=== PATIENT | female | born 1995 | race African-American/Black ===

== ENCOUNTER 2017-06-24 13:21 | Emergency (ER) | payer MEDICAID, SELFPAY ==
[~2017-06-24] VITALS: Ht 160 cm; Wt 132.4 kg
[~2017-06-24 13:21] MED LIST: BENADRYL25 MG ORAL; NAPROSYN500 M1 ORAL; NKM; NORCO 5-325 TA1 EACH PO; PENICILLIN V P500 MG PO; PREDNISONE20 MG ORAL; RANITIDINE HCL150 MG ORAL; ULTRAM50 MG PO
[2017-06-24 14:23] VITALS: BP 116/62
[2017-06-24 14:29] LABS: BASOPHILS % (AUTO) 0.7 % (0.0-2.0); LYMPHOCYTES % (AUTO) 17.4 % (20.0-45.0); MEAN CORPUSCULAR HEMOGLOBIN 26.4 PG (27.0-31.0); MEAN CORPUSCULAR HGB CONC 31.8 G/DL (32.0-36.0); MEAN CORPUSCULAR VOLUME 83 FL (80-99); MONOCYTES % (AUTO) 7.3 % (1.0-10.0); NEUTROPHILS % (AUTO) 73.7 % (45.0-75.0); PLATELET COUNT 386 K/UL (150-450); RED BLOOD COUNT 4.04 M/UL (4.20-5.40); WHITE BLOOD COUNT 10.4 K/UL (4.8-10.8)
[2017-06-24 14:32] LABS: APPEARANCE,URINE SLIGHTLY CLOUDY; KETONES,URINE NEGATIVE (NEGATIVE); LEUKOCYTE ESTERASE ,URINE 3+ (NEGATIVE); NITRITE,URINE NEGATIVE (NEGATIVE); PH,URINE 6 (4.5-8.0); PROTEIN,URINE 1+ (NEGATIVE); UROBILINOGEN,URINE 1 MG/DL (0.0-1.0)
[2017-06-24 14:35] LABS: INR 0.9 (0.9-1.1); PROTHROMBIN TIME 9.8 SEC (9.30-11.50)
[2017-06-24 14:36] LABS: ALANINE AMINOTRANSFERASE 13 U/L (12-78); ALBUMIN/GLOBULIN RATIO 0.4 (1.0-2.7); ANION GAP 8 (5-15); ASPARTATE AMINO TRANSFERASE 12 U/L (15-37); CALCIUM 8.3 MG/DL (8.5-10.1); CARBON DIOXIDE 24 MMOL/L (21-32); CHLORIDE 105 MMOL/L (98-107); CREATININE 0.5 MG/DL (0.55-1.00); GLOMERULAR FILTRATION RATE > 60 mL/min (>60); LIPASE 68 U/L (73-393); POTASSIUM 3.2 MMOL/L (3.5-5.1); SODIUM 137 MMOL/L (136-145); TOTAL PROTEIN 6.6 G/DL (6.4-8.2)
[2017-06-24 14:52] LABS: BACTERIA,URINE FEW /HPF; SQUAMOUS EPITHELIAL CELL,UR MANY /LPF (NONE/OCC); WBC,URINE TNTC /HPF (0 - 2)
[2017-06-24] MEDS ORDERED: PRENATAL VITAM1 EAC3 PO (17:18)
[2017-06-24] MEDS ORDERED: NITROFURANTOIN100 M2 ORAL (17:18)
[2017-06-24] MEDS ORDERED: TYLENOL EXTRA500 MG ORAL (17:18)
[2017-06-24 17:19] VITALS: BP 112/62
[2017-06-24 17:27] VITALS: BP 112/62
[2017-06-24] MEDS ORDERED: Acetaminophen 500mg (ES) tab ORAL ONE (17:30)
--- NOTE | 2017-06-24 22:20 | Emergency Room Report ---
History of Present Illness General Chief Complaint: General Complaint Source: Patient (BOBO SETH) Present Illness HPI The patient is a 22-year-old female presenting for lower extremity pain. She states that she believes that she is at approximately 20 weeks gestation but has not seen an OB. She noticed swelling and pain to both legs approximately 1 week prior which has been worsening. Pain is now 8/10 dull ache it is worse with leg movement. She denies any radiating pain. She denies any shortness of breath or chest pain. She denies being on OCP, recent leg injury, or recent long period of inactivity. She denies any other symptoms including N, V, F, chills, abd pain, vaginal bleeding, dysuria, vaginal DC, back pain, rash, JIANG, blurred vision, dizziness (BOBO SETH) Allergies: Coded Allergies: No Known Allergies (Unverified , 02/16/13) Patient History Past Medical History: see triage record Pertinent Family History: none Reviewed Nursing Documentation: PMH: Agreed, PSxH: Agreed (BOBO SETH) Nursing Documentation-PMH Past Medical History: No Stated History (BOBO SETH) Review of Systems All Other Systems: negative except mentioned in HPI (BOBO SETH) Physical Exam Vital Signs Date Time Temp Pulse Resp B/P (MAP) Pulse Ox O2 Delivery O2 Flow Rate FiO2 06/24/17 13:25 98.2 118 20 116/62 99 Room Air Sp02 EP Interpretation: reviewed, normal General Appearance: no apparent distress, alert, GCS 15, non-toxic Head: normocephalic, atraumatic Eyes: bilateral eye normal inspection, bilateral eye PERRL ENT: hearing grossly normal, normal pharynx, no angioedema, normal voice Neck: full range of motion, supple/symm/no masses Respiratory: chest non-tender, lungs clear, normal breath sounds, speaking full sentences Cardiovascular #1: regular rate, rhythm, no edema Gastrointestinal: normal bowel sounds, non tender, soft, non-distended, no guarding, no rebound Genitourinary: normal inspection, no CVA tenderness Musculoskeletal: back normal, gait/station normal, normal range of motion, calf tenderness - bilat, swelling - bilat lower legs, non pitting Neurologic: alert, oriented x3, responsive, motor strength/tone normal, sensory intact, speech normal Psychiatric: judgement/insight normal, memory normal, mood/affect normal, no suicidal/homicidal ideation Skin: normal color, no rash, warm/dry, well hydrated (BOBO SETH) Medical Decision Making PA Attestation Dr. Levi my supervising physician. Patient management was discussed with my supervising physician (BOBO SETH) Diagnostic Impression: Primary Impression: Urinary tract infection during Qualified Codes: O23.42 - Unspecified infection of urinary tract in , second trimester Additional Impression: Qualified Codes: Z3A.21 - 21 weeks gestation of ER Course The patient is a 22-year-old female at approximately 20 weeks gestation presenting for bilat leg pain and swelling DDx considered but not limited to: DVT, pre eclampsia, venous insufficiency, among others PE: normotensive. NAD HEENT unremarkable Abd is soft and non tender. There is bilat lower leg edema. Non pitting. Diffuse. No discoloration. + calf tenderness bilat DP pulse 2+ bilat OB US: viable IUP at 21 weeks gestation. heart rate 140s Bilat DVT study: NEG CBC and CMP unremarkable. No leukocytosis. Urinalysis is consistent with urinary tract infection Beta hCG at appropriate level for gestational age The patient needs to followup with OB as she has not had a visit during this . She is given prescription for vitamins and antibiotics due urinary tract infection. ER precautions given Laboratory Tests Test 06/24/17 14:11 06/24/17 14:15 White Blood Count 10.4 K/UL (4.8-10.8) Red Blood Count 4.04 M/UL (4.20-5.40) L Hemoglobin 10.7 G/DL (12.0-16.0) L Hematocrit 33.5 % (37.0-47.0) L Mean Corpuscular Volume 83 FL (80-99) Mean Corpuscular Hemoglobin 26.4 PG (27.0-31.0) L Mean Corpuscular Hemoglobin Concent 31.8 G/DL (32.0-36.0) L Red Cell Distribution Width 14.0 % (11.6-14.8) Platelet Count 386 K/UL (150-450) Mean Platelet Volume 5.0 FL (6.5-10.1) L Neutrophils (%) (Auto) 73.7 % (45.0-75.0) Lymphocytes (%) (Auto) 17.4 % (20.0-45.0) L Monocytes (%) (Auto) 7.3 % (1.0-10.0) Eosinophils (%) (Auto) 1.0 % (0.0-3.0) Basophils (%) (Auto) 0.7 % (0.0-2.0) Prothrombin Time 9.8 SEC (9.30-11.50) Prothrombin Time INR 0.9 (0.9-1.1) PTT 30 SEC (23-33) Sodium Level 137 MMOL/L (136-145) Potassium Level 3.2 MMOL/L (3.5-5.1) L Chloride Level 105 MMOL/L (98-107) Carbon Dioxide Level 24 MMOL/L (21-32) Anion Gap 8 (5-15) Blood Urea Nitrogen 5 mg/dL (7-18) L Creatinine 0.5 MG/DL (0.55-1.00) L Estimate Glomerular Filtration Rate > 60 mL/min (>60) Glucose Level 85 MG/DL (74-106) Calcium Level 8.3 MG/DL (8.5-10.1) L Total Bilirubin 0.5 MG/DL (0.2-1.0) Aspartate Amino Transferase (AST) 12 U/L (15-37) L Alanine Aminotransferase (ALT) 13 U/L (12-78) Alkaline Phosphatase 113 U/L (46-116) Total Protein 6.6 G/DL (6.4-8.2) Albumin 2.1 G/DL (3.4-5.0) L Globulin 4.5 g/dL Albumin/Globulin Ratio 0.4 (1.0-2.7) L Lipase 68 U/L (73-393) L Human Chorionic Gonadotropin, Quant 64153 mIU/mL (1-6) H Urine Color Brown Urine Appearance Slightly cloudy Urine pH 6 (4.5-8.0) Urine Specific [place] 1.025 (1.005-1.035) Urine Protein 1+ (NEGATIVE) H Urine Glucose (UA) Negative (NEGATIVE) Urine Ketones Negative (NEGATIVE) Urine Occult Blood 1+ (NEGATIVE) H Urine Nitrite Negative (NEGATIVE) Urine Bilirubin Negative (NEGATIVE) Urine Urobilinogen 1 MG/DL (0.0-1.0) H Urine Leukocyte Esterase 3+ (NEGATIVE) H Urine RBC 2-4 /HPF (0 - 2) H Urine WBC Tntc /HPF (0 - 2) H Urine Squamous Epithelial Cells Many /LPF (NONE/OCC) H Urine Bacteria Few /HPF (NONE) Lab Results Impression CBC and CMP unremarkable. No leukocytosis. Urinalysis is consistent with urinary tract infection Beta hCG at appropriate level for gestational age (BOBO SETH P.A.) ER Course This patient was discussed in detail. I agree with assessment and treatment plan. (Greg Figueroa M.D.) CT/MRI/US Diagnostic Results CT/MRI/US Diagnostic Results #1: Imaging Test Ordered: OB US Impression viable IUP at 21 weeks gestation. heart rate 140s CT/MRI/US Diagnostic Results #2: Imaging Test Ordered: Venous duplex bilat Impression negative DVT study (BOBO SETH P.A.) Last Vital Signs Date Time Temp Pulse Resp B/P (MAP) Pulse Ox O2 Delivery O2 Flow Rate FiO2 06/24/17 17:34 98.2 06/24/17 17:27 71 18 112/62 99 Room Air Status: improved (EUGENIE SETHY P.A.) Disposition: HOME, SELF-CARE Condition: Improved Scripts Vit/Iron Fumarate/Fa ( VITAMINS TABLET) 1 Each Tablet 1 EACH PO DAILY, #30 TAB Prov: TERZIAN,BOBO P.A. 06/24/17 Acetaminophen* (TYLENOL EXTRA STRENGTH*) 500 Mg Tablet 500 MG ORAL Q8H Y for Prn Headache/Temp > 101, #30 TAB 0 Refills Prov: TERZIAN,BOBO P.A. 06/24/17 Nitrofurantoin Monohyd/M-Cryst* (MACROBID 100 MG*) 100 Mg Capsule 100 MG ORAL EVERY 12 HOURS, #14 CAP Prov: TERZIAN,BOBO P.A. 06/24/17 Patient Instructions: Urinary Tract Infection, Second Trimester of Additional Instructions: I discussed my findings with the patient. All questions and concerns have been answered. Treatment and medication compliance have been addressed. I advised the patient that they need to follow up with PMD in 3-5 days. Return to ED if symptoms worsen, new symptoms arise, or if needed for any reason. Patient verbalized understanding of discharge instructions. The patient will need to follow up with OB as soon as possible. She agrees. Please return to emergency Department if you notice any other symptoms including nausea, vomiting, fever, chills, vaginal bleeding, abdominal pain BOBO SETH Jun 24, 2017 22:20 Greg Figueroa M.D. Jun 25, 2017 05:37
--- NOTE | 2017-06-25 11:01 | Diagnostic Imaging Report ---
APPROVED REPORT CPT Code: 00242 Present Symptoms Comments: R/O DVT BILATERAL: Imaging reveals a patent deep venous system bilaterally. There is no evidence of thrombus within the femoral, popliteal or tibial segments. The greater saphenous veins are also within normal limits. Doppler indicates normal spontaneous flow within these segments.
== END 2017-06-24 17:40 | disposition home or self-care (01) ==
LOC: EMR 14:36
DX: O23.42 Unspecified infection of urinary tract in pregnancy, second trimester (principal); Z3A.21 21 weeks gestation of pregnancy
CPT/HCPCS: 36415; 76805; 80053; 81003; 83690; 84702; 85025; 85610; 85730; 86850; 86900; 86901; 87086; 93970; 99284

== ENCOUNTER 2020-06-01 22:09 | Emergency (ER) | payer MEDICAID ==
[~2020-06-01] VITALS: Ht 160 cm; Wt 128.4 kg
[~2020-06-01 22:09] MED LIST changes: +NITROFURANTOIN100 M2 ORAL; +PRENATAL VITAM1 EAC3 PO; +TYLENOL EXTRA500 MG ORAL
[2020-06-01 22:20] VITALS: BP 101/44
[2020-06-01] MEDS ORDERED: HYDROmorphone 1mg/ml Carpuject IVP ONE (22:30)
[2020-06-01] MEDS ORDERED: Acetaminophen 500mg (ES) tab ORAL ONE (22:30)
--- NOTE | 2020-06-01 22:34 | Emergency Room Report ---
History of Present Illness General Chief Complaint: Abdominal Pain Source: Patient Present Illness [facility] This a 25-year-old female with no past medical history. She presents with chief plaint abdominal pain and fever. Onset 1 PM this afternoon. She is at temperature at home was 102. Her pain is mostly the lower quadrant and right lower quadrant area. Decreased appetite. Nauseous but no vomiting. No diarrhea. No urinary complaint. Did not take any medication for it. Pain is 8 out of 10. No radiation of the pain. Patient said that she may be even though she just got off her menstruation 2 days ago. Allergies: Coded Allergies: No Known Allergies (Unverified , 02/16/13) COVID-19 Screening Contact w/high risk pt: No Experienced COVID-19 symptoms?: Yes COVID-19 Testing performed [employer]RARIAN: No Patient History Past Medical History: see triage record, old chart reviewed Past Surgical History: none Pertinent Family History: none Last Menstrual Period: 04/18/20 Now: Yes - POSSIBILITY : 6 Para: 4 Nursing Documentation-[facility] Past Medical History: No Stated History Review of Systems Constitutional: Reports: fever Eye: Denies: eye pain, blurred vision ENT: Denies: ear pain, nose congestion, throat swelling Respiratory: Denies: cough, shortness of breath Cardiovascular: Denies: chest pain, palpitations Gastrointestinal: Reports: abdominal pain, nausea; Denies: diarrhea, vomiting Musculoskeletal: Denies: back pain, joint pain Skin: Denies: rash Neurological: Denies: headache, numbness Endocrine: Denies: increased thirst, increased urine Hematologic/Lymphatic: Denies: easy bruising All Other Systems: negative except mentioned in HPI Physical Exam Vital Signs Date Time Temp Pulse Resp B/P (MAP) Pulse Ox O2 Delivery O2 Flow Rate FiO2 06/01/20 22:12 100.8 110 18 108/63 (78) 96 Room Air Vitals with fever Sp02 EP Interpretation: reviewed, normal General Appearance: well appearing, no apparent distress, alert, obese Head: normocephalic, atraumatic Eyes: bilateral eye PERRL, bilateral eye EOMI ENT: hearing grossly normal, normal pharynx Neck: full range of motion, supple, no meningismus Respiratory: chest non-tender, lungs clear, normal breath sounds Cardiovascular #1: regular rate, rhythm, no murmur Gastrointestinal: normal bowel sounds, no mass, no organomegaly, no bruit, non- distended, tenderness - Right lower quadrant Musculoskeletal: back normal, normal range of motion, gait/station normal Psychiatric: mood/affect normal Medical Decision Making Diagnostic Impression: Primary Impression: Abdominal pain Qualified Codes: R10.30 - Lower abdominal pain, unspecified Additional Impressions: COVID-19 virus infection Morbid obesity with BMI of 50.0-59.9, adult ER Course Patient presents with abdominal pain and fever. She is COVID positive. This is probably the cause of abdominal pain. Abdominal CT unremarkable. She is in no respiratory distress. Oxygenation is normal. Will discharge home with symptomatic treatment. CT/MRI/US Diagnostic Results CT/MRI/US Diagnostic Results : Imaging Test Ordered: CT abdomen and pelvis Impression Read by radiologist. Negative. Last Vital Signs Date Time Temp Pulse Resp B/P (MAP) Pulse Ox O2 Delivery O2 Flow Rate FiO2 06/01/20 22:12 100.8 110 18 108/63 (78) 96 Room Air Status: improved Disposition: HOME, SELF-CARE Condition: Stable Scripts Hydrocodone/Acetaminophen 5-325* (HYDROCODONE/ACETAMINOPHEN 5-325*) 1 Each Tablet 1 TAB ORAL Q6H PRN for For Pain, #15 TAB 0 Refills Prov: Sourav Hatfield MD 06/02/20 Prednisone* (PREDNISONE*) 20 Mg Tablet 40 MG ORAL DAILY, #10 TAB Prov: Sourav Hatfield MD 06/02/20 Albuterol Sulfate* (Albuterol Sulfate Hfa*) 8.5 Gm Hfa.aer.ad 2 PUFF INH Q4H, #1 INH Prov: Sourav Hatfield MD 06/02/20 Additional Instructions: Wear your mask. Practice isolation. Good handwashing. Follow-up with your doctor in 3 to 5 days for checkup if not better. Return if symptoms worsen. Sourav Hatfield MD Jun 01, 2020 22:33
[2020-06-01 22:55] LABS: BASOPHILS % (AUTO) 0.4 % (0.0-2.0); EOSINOPHILS % (AUTO) 0.7 % (0.0-3.0); HEMATOCRIT 31.5 % (37.0-47.0); HEMOGLOBIN 9.8 G/DL (12.0-16.0); LYMPHOCYTES % (AUTO) 11.8 % (20.0-45.0); MEAN CORPUSCULAR VOLUME 72 FL (80-99); MONOCYTES % (AUTO) 4.7 % (1.0-10.0); NEUTROPHILS % (AUTO) 82.5 % (45.0-75.0); PLATELET COUNT 490 K/UL (150-450); RED BLOOD COUNT 4.38 M/UL (4.20-5.40); RED CELL DISTRIBUTION WIDTH 16.9 % (11.6-14.8); WHITE BLOOD COUNT 11.6 K/UL (4.8-10.8)
[2020-06-01 23:06] LABS: APPEARANCE,URINE SLIGHTLY CLOUDY; BILIRUBIN, URINE NEGATIVE (NEGATIVE); COLOR,URINE PALE YELLOW; GLUCOSE, URINE (UA) NEGATIVE (NEGATIVE); KETONES,URINE NEGATIVE (NEGATIVE); LEUKOCYTE ESTERASE ,URINE 1+ (NEGATIVE); NITRITE,URINE NEGATIVE (NEGATIVE); PH,URINE 8 (4.5-8.0); PROTEIN,URINE 1+ (NEGATIVE); UROBILINOGEN,URINE NORMAL MG/DL (0.0-1.0)
[2020-06-01 23:12] LABS: ANION GAP 9 mmol/L (5-15); BLOOD UREA NITROGEN 9 mg/dL (7-18); CALCIUM 8.6 MG/DL (8.5-10.1); CARBON DIOXIDE 26 MMOL/L (21-32); CHLORIDE 103 MMOL/L (98-107); CREATININE 0.8 MG/DL (0.55-1.30); POTASSIUM 3.5 MMOL/L (3.5-5.1); SODIUM 138 MMOL/L (136-145)
[2020-06-01 23:17] LABS: ALANINE AMINOTRANSFERASE 22 U/L (12-78); ALBUMIN 3.3 G/DL (3.4-5.0); ALBUMIN/GLOBULIN RATIO 0.8 (1.0-2.7); ALKALINE PHOSPHATASE 106 U/L (46-116); ASPARTATE AMINO TRANSFERASE 14 U/L (15-37)
[2020-06-02] MEDS ORDERED: HYDROCODON-ACE1 EA15 ORAL (00:29)
[2020-06-02] MEDS ORDERED: PREDNISONE20 MG ORAL (00:29)
[2020-06-02] MEDS ORDERED: ALBUTEROL SULF8.5 G1 INH (00:29)
--- NOTE | 2020-06-02 00:54 | Diagnostic Imaging Report ---
EXAM: CT Abdomen and Pelvis Without Intravenous Contrast CLINICAL HISTORY: ABD PAIN Notes: 19 year-old female with no past medical history. She presents with chief plaint abdominal pain and fever. Onset 1 PM this afternoon. She is at temperature at home was 102. Her pain is mostly the lower quadrant and right lower quadrant area. No diarrhea. No urinary complaint. Did not take any medication for it. Pain is 8 out of 10. No radiation of the pain. Patient said that she may be even though she just got off her menstruation 2 days ago TECHNIQUE: Axial computed tomography images of the abdomen and pelvis without intravenous contrast. CTDI is 16.70 mGy and DLP is 1116.60 mGy-cm. One or more of the following dose reduction techniques were used: automated exposure control, adjustment of the mA and/or kV according to patient size, use of iterative reconstruction technique. COMPARISON: No relevant prior studies available. FINDINGS: Evaluation of the soft tissue and vasculature is limited on this noncontrast exam. Lung bases: Unremarkable. No mass. No consolidation. ABDOMEN: Liver: Unremarkable. Gallbladder and bile ducts: Unremarkable. No calcified stones. No ductal dilation. Pancreas: Unremarkable. No ductal dilation. Spleen: Unremarkable. No splenomegaly. Adrenals: Unremarkable. No mass. Kidneys and ureters: Unremarkable. No obstructing stones. No hydronephrosis. Stomach and bowel: Unremarkable. No obstruction. No mucosal thickening. PELVIS: Appendix: Normal appendix (124). Bladder: Not well visualized. Reproductive: Not well visualized but unremarkable within the confines of this noncontrast exam.. ABDOMEN and PELVIS: Intraperitoneal space: Unremarkable. No free air. No significant fluid collection. Bones/joints: No acute fracture. No dislocation. Left femoral head bone island. Soft tissues: Unremarkable. Vasculature: Unremarkable. No abdominal aortic aneurysm. Lymph nodes: Unremarkable. No enlarged lymph nodes. IMPRESSION: 1. No acute findings identified on this noncontrast CT scan to explain the patient's symptoms. 2. Normal appendix. 3. The reproductive organs are not well evaluated on this exa. Consider correlation with pelvic ultrasound if there is clinical concern for genitourinary pathology.
[2020-06-02 01:01] VITALS: BP 105/62
== END 2020-06-02 01:33 | disposition home or self-care (01) ==
LOC: EMR 22:30
DX: U07.1 COVID-19 (principal); R10.30 Lower abdominal pain, unspecified; E66.01 Morbid (severe) obesity due to excess calories; Z68.43 Body mass index [BMI] 50.0-59.9, adult
CPT/HCPCS: 36415; 74176; 80053; 81003; 81025; 83690; 85025; 96361; 96374; 96375; J1170; J2405; J7030; U0002; Z7502; 99284